=== PATIENT | male | born 1980 | race African-American/Black ===

== ENCOUNTER 2023-01-11 09:58 | Emergency (ER) | payer SELFPAY ==
[2023-01-11] MEDS ORDERED: Ketorolac Tromethamine 30 MG/ML VIAL ONE (10:51)
== END 2023-01-11 13:00 | disposition home or self-care (01) ==
LOC: CSHERS 09:58
DX: H60.91 Unspecified otitis externa, right ear (principal); F17.210 Nicotine dependence, cigarettes, uncomplicated
CPT/HCPCS: 96372; 99282; J1885